=== PATIENT | male | born 1995 | race Caucasian/White ===

== ENCOUNTER 2018-01-12 19:06 | Emergency (ER) | payer SELFPAY ==
--- NOTE | 2018-01-12 20:00 | EDPHYS ---
Physician Documentation [facility] Name: Bill Matthew Age: 22 yrs Sex: Male : 1995 Arrival Date: 01/12/2018 Time: 19:19 Bed Treatment Private MD: ED Physician Huey Lin HPI: 01/12 19:57 This 22 yrs old Male presents to ER via Ambulatory with complaints of Sore kb Throat. 19:57 The patient presents with sore throat. The patient describes throat pain as constant. kb Onset: The symptoms/episode began/occurred today. Severity of symptoms: At their worst the symptoms were mild, moderate, in the emergency department the symptoms are unchanged. Modifying factors: The symptoms are alleviated by nothing, the symptoms are aggravated by nothing, Patient's oral intake status: good Denies contact with similarly ill indivduals. Associated signs and symptoms: Pertinent positives: Sore throat. The patient has not experienced similar symptoms in the past. The patient has not recently seen a physician. 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 - Social history:: Smoking status: Patient/guardian denies using tobacco. ROS: 19:56 Constitutional: Negative for fever, chills, and weight loss, Cardiovascular: Negative kb for chest pain, palpitations, and edema, Respiratory: Negative for shortness of breath, cough, wheezing, and pleuritic chest pain, Abdomen/GI: Negative for abdominal pain, nausea, vomiting, diarrhea, and constipation, MS/Extremity: Negative for injury and deformity, Skin: Negative for injury, rash, and discoloration, Neuro: Negative for headache, weakness, numbness, tingling, and seizure. 19:56 ENT: Positive for sore throat. Exam: 19:56 Constitutional: This is a well developed, well nourished patient who is awake, alert, kb and in no acute distress. Head/Face: Normocephalic, atraumatic. ENT: Nares patent. No nasal discharge, no septal abnormalities noted. Tympanic membranes are normal and external auditory canals are clear. Oropharynx with no redness, swelling, or masses, exudates, or evidence of obstruction, uvula midline. Mucous membranes moist. Neck: Trachea midline, no thyromegaly or masses palpated, and no cervical lymphadenopathy. Supple, full range of motion without nuchal rigidity, or vertebral point tenderness. No Meningismus. Chest/axilla: Normal chest wall appearance and motion. Nontender with no deformity. No lesions are appreciated. Cardiovascular: Regular rate and rhythm with a normal S1 and S2. No gallops, murmurs, or rubs. Normal PMI, no JVD. No pulse deficits. Respiratory: Lungs have equal breath sounds bilaterally, clear to auscultation and percussion. No rales, rhonchi or wheezes noted. No increased work of breathing, no retractions or nasal flaring. Abdomen/GI: Soft, non-tender, with normal bowel sounds. No distension or tympany. No guarding or rebound. No evidence of tenderness throughout. Back: No spinal tenderness. No costovertebral tenderness. Full range of motion. Skin: Warm, dry with normal turgor. Normal color with no rashes, no lesions, and no evidence of cellulitis. MS/ Extremity: Pulses equal, no cyanosis. Neurovascular intact. Full, normal range of motion. Neuro: Awake and alert, GCS 15, oriented to person, place, time, and situation. Cranial nerves II-XII grossly intact. Motor strength 5/5 in all extremities. Sensory grossly intact. Cerebellar exam normal. Normal gait. Vital Signs: 19:21 BP 140 / 95; Pulse 79; Resp 16; Temp 98.1(TE); Pulse Ox 98% on R/A; Weight 93.44 kg ak1 (R); Height 5 ft. 9 in. (175.26 cm) (R); Pain 5/10; 20:06 BP 142 / 85; Pulse 76; Resp 17; Temp 97.2(O); Pulse Ox 100% on R/A; Pain 5/10; ed1 19:21 Body Mass Index 30.42 (93.44 kg, 175.26 cm) ak1 MDM: 19:47 Patient medically screened. daniella 19:56 Data reviewed: vital signs, nurses notes. Data interpreted: Pulse oximetry: on room air kb is 98 %. Interpretation: normal. Counseling: I had a detailed discussion with the patient and/or guardian regarding: the historical points, exam findings, and any diagnostic results supporting the discharge/admit diagnosis, lab results, the need for outpatient follow up, a family practitioner, to return to the emergency department if symptoms worsen or persist or if there are any questions or concerns that arise at home. 01/12 19:23 Order name: Strep; Complete Time: 19:51 ak1 01/12 19:50 Order name: Throat Culture EDMS Administered Medications: No medications were administered Disposition: 20:13 Co-signature as Attending Physician, Huey Lin MD. rn Disposition: 01/12/18 19:59 Discharged to Home. Impression: Acute pharyngitis. - Condition is Stable. - Discharge Instructions: Pharyngitis, [id number], Viral Infections, [id number]. - Medication Reconciliation Form, Thank You Letter, Antibiotic Education, Prescription Opioid Use, Work release form form. - Follow up: Emergency Department; When: As needed; Reason: Worsening of condition. Follow up: Private Physician; When: 2 - 3 days; Reason: Recheck today's complaints, Continuance of care, Re-evaluation by your physician. Signatures: Dispatcher [employer] EDMS Cheri Martínez, FORMSTONE FITTER-C FORMSTONE FITTER-Ckb Huey Lin MD MD rn Riggs, Erika, ANALYST GEOCHEMICAL PROSPECTING ANALYST GEOCHEMICAL PROSPECTING ed1 Carlee Grossman, RN RN ak1 Corrections: (The following items were deleted from the chart) 19:56 19:56 ENT: Positive for hoarseness, sore throat, kb kb 20:08 19:59 01/12/2018 19:59 Discharged to Home. Impression: Acute pharyngitis. Condition is ed1 Stable. Forms are Medication Reconciliation Form, Thank You Letter, Antibiotic Education, Prescription Opioid Use. Follow up: Emergency Department; When: As needed; Reason: Worsening of condition. Follow up: Private Physician; When: 2 - 3 days; Reason: Recheck today's complaints, Continuance of care, Re-evaluation by your physician. kb
--- NOTE | 2018-01-12 20:00 | ER ---
Nurse's Notes [facility] Name: Bill Matthew Age: 22 yrs Sex: Male : 1995 Arrival Date: 01/12/2018 Time: 19:19 Bed Treatment Private MD: Diagnosis: Acute pharyngitis Presentation: 01/12 19:20 Presenting complaint: Patient states: sore throat 3 days with cough and congestion. ak1 Transition of care: patient was not received from another setting of care. Onset of symptoms was January 08, 2018. Initial Sepsis Screen: Does the patient meet any 2 criteria? No. Patient's initial sepsis screen is negative. Does the patient have a suspected source of infection? No. Patient's initial sepsis screen is negative. Care prior to arrival: None. 19:20 Method Of Arrival: Ambulatory ak1 19:20 Acuity: AMIE 4 ak1 Triage Assessment: 19:21 General: Appears in no apparent distress. Behavior is calm, cooperative. Pain: ak1 Complains of pain in throat pain. EENT: Throat is reddened. Neuro: No deficits noted. Cardiovascular: No deficits noted. Respiratory: No deficits noted. GI: No signs and/or symptoms were reported involving the gastrointestinal system. : No signs and/or symptoms were reported regarding the genitourinary system. Derm: No signs and/or symptoms reported regarding the dermatologic system. Musculoskeletal: No signs and/or symptoms reported regarding the musculoskeletal system. 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 - Social history:: Smoking status: Patient/guardian denies using tobacco. Screenin:23 Abuse screen: Denies threats or abuse. Denies injuries from another. Nutritional ak1 screening: No deficits noted. Tuberculosis screening: No symptoms or risk factors identified. Fall Risk None identified. Assessment: 19:23 Respiratory: Airway is patent Respiratory effort is even, unlabored, Breath sounds are ak1 clear. 19:47 General: Appears in no apparent distress. Behavior is calm, cooperative. Pain: ed1 Complains of pain in throat Pain does not radiate. Pain currently is 5 out of 10 on a pain scale. Quality of pain is described as burning, Pain began 1 day ago. Is continuous. Neuro: Level of Consciousness is awake, alert, obeys commands, Oriented to person, place, time, situation. Cardiovascular: Heart tones S1 S2 present. Respiratory: Airway is patent Respiratory effort is even, unlabored, Respiratory pattern is regular, symmetrical, Breath sounds are clear bilaterally. GI: No signs and/or symptoms were reported involving the gastrointestinal system. : No signs and/or symptoms were reported regarding the genitourinary system. EENT: Throat is reddened. Derm: Skin is pink, warm \T\ dry. Musculoskeletal: Circulation, motion, and sensation intact. 19:50 Reassessment: Patient appears in no apparent distress at this time. No changes from aa1 previously documented assessment. 20:06 Reassessment: Patient appears in no apparent distress at this time. No changes from ed1 previously documented assessment. Patient and/or family updated on plan of care and expected duration. Pain level reassessed. Patient is alert, oriented x 3, equal unlabored respirations, skin warm/dry/pink. Patient states symptoms have not improved. Vital Signs: 19:21 BP 140 / 95; Pulse 79; Resp 16; Temp 98.1(TE); Pulse Ox 98% on R/A; Weight 93.44 kg ak1 (R); Height 5 ft. 9 in. (175.26 cm) (R); Pain 5/10; 20:06 BP 142 / 85; Pulse 76; Resp 17; Temp 97.2(O); Pulse Ox 100% on R/A; Pain 5/10; ed1 19:21 Body Mass Index 30.42 (93.44 kg, 175.26 cm) ak1 ED Course: 19:19 Patient arrived in ED. al2 19:21 Triage completed. ak1 19:21 Arm band placed on Patient placed in waiting room. strep swab. ak1 19:24 Patient has correct armband on for positive identification. ak1 19:47 Cheri Mart[facility] F[facility]-C [facility]. kb 19:47 Huey Lin MD is Attending Physician. kb 20:04 Alyce Vee LVN is Primary Nurse. ed1 20:06 No provider procedures requiring assistance completed. Patient did not have IV access ed1 during this emergency room visit. Administered Medications: No medications were administered Outcome: 19:59 Discharge ordered by . daniella 20:06 Discharged to home ambulatory. ed1 20:06 Condition: good 20:06 Discharge instructions given to patient, Instructed on discharge instructions, follow up and referral plans. Demonstrated understanding of instructions, follow-up care. 20:08 Patient left the ED. ed1 Signatures: Cheri Martínez, RANI-Karly SARAVIA-Ananya Friedman, RN RN aa1 Alyce Vee LVN RESEARCH KENNEL SUPERVISOR ed1 Carlee Grossman RN RN ak1 Hallie Swanson al2
== END 2018-01-12 20:08 | disposition home or self-care (01) ==
LOC: ER 19:06
DX: J02.9 Acute pharyngitis, unspecified (principal); Z88.4 Allergy status to anesthetic agent
CPT/HCPCS: 87070; 87081; 99281

== ENCOUNTER 2018-09-22 17:01 | Emergency (ER) | payer SELFPAY ==
--- NOTE | 2018-09-22 21:07 | RAD REPORT ---
EXAM DESCRIPTION: CTFacial Bones W Con Mpr09/22/2018 8:51 pm CLINICAL HISTORY: Right facial pain and swelling COMPARISON: None. TECHNIQUE: Computed axial tomography of the face obtained with coronal and sagittal reconstruction. 50 cc Isovue-[address] scans are performed using dose optimization technique as appropriate and may include automated exposure control or mA/KV adjustment according to patient size. FINDINGS: Multiple lymph nodes are scattered throughout the neck bilaterally measuring up to 12 mill imeters. Lymph nodes are present within the parotid glands, posterior triangles, deep to the sternocl eidomastoid muscle and para mental region. The parotid and submandibular glands otherwise appear unremarkable. The parapharyngeal fat is clear. Fluid within the sinuses/mastoids is not noted. The external auditory canal is clear / Nasal septum is deviated towards the left IMPRESSION: Mild diffuse lymphadenopathy presumably is reactive in nature. As neoplasm such as lymph erik can have this presentation, it is recommended that the patient have a followup CT in 3 months to assess stability/resolution .
--- NOTE | 2018-09-22 21:19 | EDPHYS ---
Physician Documentation [facility] Name: Bill Matthew Age: 23 yrs Sex: Male : 1995 Arrival Date: 09/22/2018 Time: 17:05 Bed 11 Private MD: ED Physician Parish Gomez HPI: 09/22 18:45 This 23 yrs old Male presents to ER via Ambulatory with complaints of Ear jmm Pain. 18:45 The patient presents with pain. The complaints affect the right ear, right zygomatic jmm area and right cheek. Onset: The symptoms/episode began/occurred gradually, 1 day(s) ago. Modifying factors: The symptoms are alleviated by nothing, the symptoms are aggravated by nothing. Associated signs and symptoms: Pertinent negatives: cough, fever. This is a 23 year old male with no chronic medical conditions that presents to the ED with right ear pain with lymph node swelling. Patient denies fever, cough, shortness of breath. . Historical: - Allergies: 17:24 Lidocaine; does not numb anything, makes feeling more intense; hb - Home Meds: 17:24 None [Active]; hb - PMHx: 17:24 pleural stenosis as ; hb - PSHx: 17:24 abdominal sx; hb - Immunization history:: Adult Immunizations up to date. - Social history:: Smoking status: Patient/guardian denies using tobacco. - Ebola Screening: : No symptoms or risks identified at this time. ROS: 18:45 Constitutional: Negative for fever, chills, and weight loss. jmm 18:45 ENT: Positive for ear pain. 18:45 All other systems are negative. Exam: 18:45 Constitutional: This is a well developed, well nourished patient who is awake, alert, jmm and in no acute distress. 18:45 Neck: Trachea midline, Supple Chest/axilla: Normal chest wall appearance and motion. Cardiovascular: Regular rate and rhythm. No edema appreciated Respiratory: Normal respirations, no respiratory distress appreciated Abdomen/GI: Non distended, soft Back: Normal ROM Skin: General appearance color normal MS/ Extremity: Moves all extremities, no obvious deformities appreciated, no edema noted to the lower extremities Neuro: Awake and alert, normal gait Psych: Behavior is normal, Mood is normal, Patient is cooperative and pleasant 18:45 Head/face: anterior auricular swelling is appreciated. 18:45 ENT: TM's: are normal. Vital Signs: 17:22 BP 138 / 90; Pulse 71; Resp 16; Temp 97(TE); Pulse Ox 99% ; Pain 7/10; hb MDM: 18:45 Patient medically screened. [facility] 21:14 Data reviewed: vital signs, nurses notes. Counseling: I had a detailed discussion with [facility] the patient and/or guardian regarding: the historical points, exam findings, and any diagnostic results supporting the discharge/admit diagnosis, radiology results, the need for outpatient follow up, to return to the emergency department if symptoms worsen or persist or if there are any questions or concerns that arise at home. ED course: CT results discussed with the patient along with the need for follow up due to concerns of malignant nature. Patient was given return precautions. Patient understood and agrees with the plan of care. . 09/22 18:58 Order name: Creatinine for Radiology; Complete Time: 20:09 [facility] 09/22 18:58 Order name: CT Facial Bones W/ Con \T\ Mpr; Complete Time: 21:14 [facility] 09/22 18:58 Order name: Saline Lock; Complete Time: 19:31 [facility] Administered Medications: No medications were administered Disposition: 09/22/18 21:18 Discharged to Home. Impression: Enlarged lymph nodes, unspecified. - Condition is Stable. - Discharge Instructions: Lymphadenopathy. - Medication Reconciliation Form, Thank You Letter, Antibiotic Education, Prescription Opioid Use, Work release form form. - Follow up: Private Physician; When: As needed; Reason: Recheck today's complaints, Continuance of care, Re-evaluation by your physician. Follow up: Viviane Goss MD; When: 2 - 3 days; Reason: Recheck today's complaints, Continuance of care, Re-evaluation by your physician. Addendum: 09/29/2018 09:33 Co-signature as Attending Physician, Parish Gomez MD I agree with the assessment and k dr plan of care. Signatures: Dispatcher [employer] EDMS Parish Gomez MD MD kdr Mickail, Joel, PA PA [facility] Ryann Lee RN RN Isabella Morin RN RN Corrections: (The following items were deleted from the chart) 09/22 21:19 21:18 09/22/2018 21:18 Discharged to Home. Impression: Enlarged lymph nodes, jmm unspecified. Condition is Stable. Forms are Medication Reconciliation Form, Thank You Letter, Antibiotic Education, Prescription Opioid Use. Follow up: Private Physician; When: As needed; Reason: Recheck today's complaints, Continuance of care, Re-evaluation by your physician. veronica 21:34 21:19 09/22/2018 21:18 Discharged to Home. Impression: Enlarged lymph nodes, iw unspecified. Condition is Stable. Discharge Instructions: Lymphadenopathy. Forms are Medication Reconciliation Form, Thank You Letter, Antibiotic Education, Prescription Opioid Use. Follow up: Private Physician; When: As needed; Reason: Recheck today's complaints, Continuance of care, Re-evaluation by your physician. Follow up: Viviane Faulkner; When: 2 - 3 days; Reason: Recheck today's complaints, Continuance of care, Re-evaluation by your physician. [facility]
--- NOTE | 2018-09-22 21:19 | ER ---
Nurse's Notes [facility] Name: Bill Matthew Age: 23 yrs Sex: Male : 1995 Arrival Date: 09/22/2018 Time: 17:05 Bed 11 Private MD: Diagnosis: Enlarged lymph nodes, unspecified Presentation: 09/22 17:23 Presenting complaint: Right ear pain x 2 days, blood drainage from ear today. hb Transition of care: patient was not received from another setting of care. Onset of symptoms was September 21, 2018. Risk Assessment: Do you want to hurt yourself or someone else? Patient reports no desire to harm self or others. Initial Sepsis Screen: Does the patient meet any 2 criteria? No. Patient's initial sepsis screen is negative. Does the patient have a suspected source of infection? No. Patient's initial sepsis screen is negative. Care prior to arrival: None. 17:23 Method Of Arrival: Ambulatory hb 17:23 Acuity: AMIE 4 hb Historical: - Allergies: 17:24 Lidocaine; does not numb anything, makes feeling more intense; hb - Home Meds: 17:24 None [Active]; hb - PMHx: 17:24 pleural stenosis as ; hb - PSHx: 17:24 abdominal sx; hb - Immunization history:: Adult Immunizations up to date. - Social history:: Smoking status: Patient/guardian denies using tobacco. - Ebola Screening: : No symptoms or risks identified at this time. Screenin:29 Abuse screen: Denies threats or abuse. Denies injuries from another. Nutritional iw screening: No deficits noted. Tuberculosis screening: No symptoms or risk factors identified. Fall Risk None identified. Assessment: 18:29 General: Appears in no apparent distress. Behavior is calm, cooperative. Pain: iw Complains of pain in right ear. Neuro: Level of Consciousness is awake, alert, obeys commands, Oriented to person, place, time, situation. Respiratory: Respiratory effort is even, unlabored, Respiratory pattern is regular, symmetrical. EENT: Reports pain in right ear. 21:07 Reassessment: Patient appears in no apparent distress at this time. Patient and/or iw family updated on plan of care and expected duration. Pain level reassessed. Patient is alert, oriented x 3, equal unlabored respirations, skin warm/dry/pink. Vital Signs: 17:22 BP 138 / 90; Pulse 71; Resp 16; Temp 97(TE); Pulse Ox 99% ; Pain 7/10; hb ED Course: 17:05 Patient arrived in ED. rg4 17:23 Triage completed. hb 17:23 Arm band placed on. hb 18:21 Ryann Lee, RN is Primary Nurse. iw 18:22 Rigo Justice PA is PHCP. m 18:22 Parish Gomez MD is Attending Physician. jmm 18:30 No provider procedures requiring assistance completed. iw 19:00 Patient has correct armband on for positive identification. iw 19:04 Radiology exam delayed due to lab results not completed at this time. (BUN/Creatinine). vm2 19:31 Inserted saline lock: 22 gauge in left antecubital area, using aseptic technique. iw 19:53 Radiology exam delayed due to lab results not completed at this time. (BUN/Creatinine). vm2 20:[address] via wheelchair. vm2 20:46 CT completed. Patient tolerated procedure well. Patient moved back from CT. vm2 20:51 CT Facial Bones W/ Con \T\ Mpr In Process Unspecified. EDMS 21:19 Viviane Goss MD is Referral Physician. m 21:33 Patient did not have IV access during this emergency room visit. iw Administered Medications: No medications were administered Outcome: 21:18 Discharge ordered by . m 21:33 Discharged to home ambulatory. iw 21:33 Condition: good 21:33 Discharge instructions given to patient, Instructed on discharge instructions, follow up and referral plans. Demonstrated understanding of instructions, follow-up care. 21:34 Patient left the ED. Signatures: Dispatcher [employer] EDMS Rigo Justice PA PA jmm Williams, Irene, RN RN Isabella Morin RN RN hb Garcia, Rubi rg4 Lindsey Tomas 2
== END 2018-09-22 21:34 | disposition home or self-care (01) ==
LOC: ER 17:01
DX: R59.0 Localized enlarged lymph nodes (principal); Z88.8 Allergy status to other drugs, medicaments and biological substances
CPT/HCPCS: 36415; 70487; 76377; Q9967